=== PATIENT | male | born 1980 | race Caucasian/White ===

== ENCOUNTER 2016-12-04 22:54 | Emergency (ER) | payer OTHER ==
[~2016-12-04] VITALS: Ht 172.7 cm; Wt 70.0 kg
[~2016-12-04 22:54] MED LIST: NORCO 5/3251 TABLET PO
[2016-12-04 23:01] VITALS: BP 113/72
[2016-12-05] MEDS ORDERED: NARCAN4 MG NS (03:49)
== END 2016-12-05 00:46 | disposition left against medical advice (07) ==
LOC: EME → EDBD 22:54 → EME 12-05 00:46 → CANRESERV 12-11 00:14 → ENRESERV 12-11 00:14
DX: T40.601A Poisoning by unspecified narcotics, accidental (unintentional), initial encounter (principal); Z53.20 Procedure and treatment not carried out because of patient's decision for unspecified reasons; F17.200 Nicotine dependence, unspecified, uncomplicated
CPT/HCPCS: 99281; 99284; J2310

== ENCOUNTER 2016-12-05 01:34 | Emergency (ER) | payer OTHER ==
[~2016-12-05] VITALS: Ht 172.7 cm; Wt 83.1 kg
[2016-12-05] MEDS ORDERED: NARCAN4 MG NS (03:49)
[2016-12-05 04:07] VITALS: BP 107/61
== END 2016-12-05 04:08 | disposition home or self-care (01) ==
LOC: EME → EDBD 01:34 → EME 01:34
DX: T40.601A Poisoning by unspecified narcotics, accidental (unintentional), initial encounter (principal); F17.200 Nicotine dependence, unspecified, uncomplicated
CPT/HCPCS: 71010; 99281; 99284; J2310

== ENCOUNTER 2016-12-10 22:22 | Inpatient (IN) | payer OTHER ==
[~2016-12-10] VITALS: Ht 167.6 cm; Wt 81.2 kg
[~2016-12-10 22:22] MED LIST changes: +NARCAN4 MG NS
[2016-12-10 22:41] LABS: BASOPHIL COUNT 0.1 K/uL (0-0.1); EOSINOPHIL (%) 0.6 % (0-5); EOSINOPHIL COUNT 0.1 K/uL (0-0.3); HEMATOCRIT 45.4 % (38.0-50.0); IMMATURE GRANULOCYTE (%) 0.4 % (0.0-0.7); INSTRUMENT ABS NEUTROPHIL CT 5.7 K/uL; MCH 28.1 PG (29.0-34.0); MCHC 33.9 G/DL (30.0-36.0); MCV 82.8 FL (86-99); MEAN PLAT.VOLUME 9.7 uM^3 (9.0-12.4); MONOCYTE (%) 6.8 % (3-12); MONOCYTE COUNT 0.6 K/uL (0-0.8); NEUTROPHIL COUNT 5.7 K/uL (1.8-6.4); PLATELET COUNT 221 K/uL (156-360); RBC DIS.WIDTH-CV 11.9 % (11.8-14.6); RBC DIS.WIDTH-SD 36.6 % (39-53); RED BLOOD COUNT 5.48 M/uL (4.00-5.50); WHITE BLOOD COUNT 8.4 K/uL (4.1-10.2)
[2016-12-10 22:51] LABS: AMYLASE 32 IU/L (1-118); CHLORIDE 107 mEq/L (99-109); POTASSIUM 3.6 mEq/L (3.7-5.4); SODIUM 141 mEq/L (136-147)
[2016-12-10 22:53] LABS: GLUCOSE 91 mg/dL (70-99)
[2016-12-10 22:54] LABS: ANION GAP 13 MEQ/L (2-14)
[2016-12-10 22:56] LABS: SERUM ETHYL ALCOHOL 123 mg/dL
[2016-12-10 22:57] LABS: GFR ESTIMATE (CALCULATED) > 59 mL/min/
[2016-12-10 22:58] LABS: UREA NITROGEN (BUN) 10 mg/dL (9-23)
[2016-12-10 23:00] LABS: LIPASE 23 U/L (1.0-51.0)
[2016-12-11] VITALS (8 sets, daily range): BP systolic 95–124; BP diastolic 51–70
[2016-12-11 06:53] LABS: ADD MIUA? NO; BILIRUBIN NEGATIVE; BLOOD NEGATIVE; COLOR YELLOW ((YELLOW)); GLUCOSE (STRIP) NEGATIVE; KETONES 20; LEUKOCYTES NEGATIVE; NITRITE NEGATIVE; PROTEIN (STRIP) NEGATIVE; SPECIFIC GRAVITY 1.016 (1.000-1.030); UCUL ADDED? NO; UROBILINOGEN 0.2 MG/DL (0.2-1.0)
[2016-12-11 07:02] LABS: ADD MEDTOX COMMENT Y
[2016-12-11 07:42] LABS: AMPHETAMINES QUANT VALUE 0 NG/ML; BARBITUATES QUANT VALUE 0 NG/ML; BENZODIAZEPINES, URINE SCREEN POSITIVE (200 ng/mL); MARIJUANA QUANT VALUE 0 NG/ML; PHENCYCLIDINE QUANT VALUE 0 NG/ML
[2016-12-11 08:48] LABS: EOSINOPHIL (%) 0.2 % (0-5); HEMATOCRIT 42.4 % (38.0-50.0); IMMATURE GRANULOCYTE (%) 0.3 % (0.0-0.7); INSTRUMENT ABS NEUTROPHIL CT 10.4 K/uL; LYMPHOCYTE COUNT 1.5 K/uL (1.0-2.8); MCH 29.1 PG (29.0-34.0); MCHC 34.2 G/DL (30.0-36.0); MCV 85.1 FL (86-99); MEAN PLAT.VOLUME 10.4 uM^3 (9.0-12.4); MONOCYTE (%) 8.5 % (3-12); MONOCYTE COUNT 1.1 K/uL (0-0.8); NEUTROPHIL (%) 79.3 % (45-76); NEUTROPHIL COUNT 10.4 K/uL (1.8-6.4); PLATELET COUNT 191 K/uL (156-360); RBC DIS.WIDTH-CV 12.3 % (11.8-14.6); RED BLOOD COUNT 4.98 M/uL (4.00-5.50); WHITE BLOOD COUNT 13.1 K/uL (4.1-10.2)
[2016-12-11 09:19] LABS: ALKALINE PHOSPHATASE 53 IU/L (3-129); ANION GAP 7 MEQ/L (2-14); CHLORIDE 106 MEQ/L (99-109); GFR ESTIMATE (CALCULATED) > 59 mL/min/; GLUCOSE 95 mg/dL (70-99); MAGNESIUM 1.8 mg/dl (1.3-2.7); POTASSIUM 4.2 MEQ/L (3.7-5.4); SAMPLE HEMOLYSIS CHECK 0; SAMPLE ICTERIC CHECK 0; SAMPLE LIPEMIA CHECK 0; SODIUM 138 MEQ/L (136-147); UREA NITROGEN (BUN) 9 mg/dL (9-23)
[2016-12-11] MEDS ORDERED: GABAPENTIN600 MG PO (12:08)
[2016-12-12 00:24] VITALS: BP 119/63
[2016-12-12 03:53] VITALS: BP 130/67
[2016-12-12 07:48] VITALS: BP 123/66
[2016-12-12 09:28] LABS: EOSINOPHIL (%) 0.1 % (0-5); HEMATOCRIT 42.3 % (38.0-50.0); IMMATURE GRANULOCYTE (%) 0.5 % (0.0-0.7); IMMATURE GRANULOCYTE COUNT 0.1 K/uL; INSTRUMENT ABS NEUTROPHIL CT 11.5 K/uL; LYMPHOCYTE COUNT 1.1 K/uL (1.0-2.8); MCH 28.9 PG (29.0-34.0); MCV 84.9 FL (86-99); MEAN PLAT.VOLUME 10.3 uM^3 (9.0-12.4); MONOCYTE (%) 7.2 % (3-12); NEUTROPHIL (%) 84.1 % (45-76); NEUTROPHIL COUNT 11.5 K/uL (1.8-6.4); PLATELET COUNT 164 K/uL (156-360); RBC DIS.WIDTH-CV 12.3 % (11.8-14.6); RBC DIS.WIDTH-SD 37.9 % (39-53); RED BLOOD COUNT 4.98 M/uL (4.00-5.50); WHITE BLOOD COUNT 13.7 K/uL (4.1-10.2)
[2016-12-12 10:04] LABS: ALKALINE PHOSPHATASE 57 IU/L (3-129); ANION GAP 8 MEQ/L (2-14); CHLORIDE 107 MEQ/L (99-109); GFR ESTIMATE (CALCULATED) > 59 mL/min/; GLUCOSE 125 mg/dL (70-99); MAGNESIUM 1.7 mg/dl (1.3-2.7); SAMPLE HEMOLYSIS CHECK 0; SAMPLE ICTERIC CHECK 0; SAMPLE LIPEMIA CHECK 0; SODIUM 138 MEQ/L (136-147); TOTAL BILIRUBIN 0.9 MG/DL (0.0-1.0); UREA NITROGEN (BUN) 8 mg/dL (9-23)
[2016-12-12 11:30] VITALS: BP 119/65
[2016-12-12 15:28] VITALS: BP 118/62
[2016-12-12 19:58] VITALS: BP 112/63
[2016-12-13 00:09] VITALS: BP 119/59
[2016-12-13 03:49] VITALS: BP 116/62
[2016-12-13 08:22] VITALS: BP 119/61
[2016-12-13 14:39] LABS: EOSINOPHIL (%) 0.5 % (0-5); EOSINOPHIL COUNT 0.1 K/uL (0-0.3); IMMATURE GRANULOCYTE (%) 0.6 % (0.0-0.7); IMMATURE GRANULOCYTE COUNT 0.1 K/uL; INSTRUMENT ABS NEUTROPHIL CT 8.9 K/uL; MCH 28.8 PG (29.0-34.0); MCHC 33.3 G/DL (30.0-36.0); MCV 86.5 FL (86-99); MEAN PLAT.VOLUME 10.3 uM^3 (9.0-12.4); MONOCYTE (%) 6.9 % (3-12); MONOCYTE COUNT 0.7 K/uL (0-0.8); NEUTROPHIL (%) 82.8 % (45-76); NEUTROPHIL COUNT 8.9 K/uL (1.8-6.4); PLATELET COUNT 138 K/uL (156-360); RBC DIS.WIDTH-SD 38.5 % (39-53); RED BLOOD COUNT 4.51 M/uL (4.00-5.50); WHITE BLOOD COUNT 10.7 K/uL (4.1-10.2)
[2016-12-13 15:21] LABS: ANION GAP 6 MEQ/L (2-14); CHLORIDE 108 MEQ/L (99-109); MAGNESIUM 1.7 mg/dl (1.3-2.7); POTASSIUM 4.1 MEQ/L (3.7-5.4); SAMPLE HEMOLYSIS CHECK 0; SAMPLE ICTERIC CHECK 0; SAMPLE LIPEMIA CHECK 0; SODIUM 138 MEQ/L (136-147); TOTAL BILIRUBIN 0.9 MG/DL (0.0-1.0)
[2016-12-13 15:29] LABS: ALKALINE PHOSPHATASE 52 IU/L (3-129); GFR ESTIMATE (CALCULATED) > 59 mL/min/; GLUCOSE 119 mg/dL (70-99); UREA NITROGEN (BUN) 9 mg/dL (9-23)
[2016-12-13 16:05] VITALS: BP 134/67
[2016-12-13 23:22] VITALS: BP 129/71
[2016-12-14 07:49] VITALS: BP 130/64
[2016-12-14] MEDS ORDERED: PERCOCET 5/31 TABLET PO (10:22)
== END 2016-12-14 13:11 | disposition home or self-care (01) | DRG 581 ==
LOC: TRA 22:22 → ENRESERV 23:49 → SDC 12-11 → TRA 12-11 → ENRESERV 12-11 01:59 → 2SOUTH 12-11 02:16 → 3EAST 12-11 02:16
PROVIDERS: Internal Medicine Pulmonary Disease; Surgery
DX: S31.119A Laceration without foreign body of abdominal wall, unspecified quadrant without penetration into peritoneal cavity, initial encounter (principal); S11.91XA Laceration without foreign body of unspecified part of neck, initial encounter; S41.111A Laceration without foreign body of right upper arm, initial encounter; T40.1X1A Poisoning by heroin, accidental (unintentional), initial encounter; K45.8 Other specified abdominal hernia without obstruction or gangrene; F10.129 Alcohol abuse with intoxication, unspecified; I10 Essential (primary) hypertension; F31.9 Bipolar disorder, unspecified; Y90.6 Blood alcohol level of 120-199 mg/100 ml; K43.9 Ventral hernia without obstruction or gangrene; F41.1 Generalized anxiety disorder; Z88.0 Allergy status to penicillin; X99.1XXA Assault by knife, initial encounter
CPT/HCPCS: 71010; 74020; 74177; 80048; 80053; 80306 90; 81003; 82150; 83690; 83735; 84100; 84999; 85025; 86900; 86901; 88305; 94799; 99281; 99285; G0480; J0744; J1170; J1650; J1885; J2250; J2405; J3010; J7050; S0030

== ENCOUNTER 2017-03-16 09:50 | Emergency (ER) | payer OTHER ==
[~2017-03-16] VITALS: Ht 170.2 cm; Wt 82.2 kg
[~2017-03-16 09:50] MED LIST changes: +GABAPENTIN600 MG PO; +PERCOCET 5/31 TABLET PO
[2017-03-16 11:20] VITALS: BP 120/82
== END 2017-03-16 11:21 | disposition home or self-care (01) ==
LOC: EME 09:50
DX: J06.9 Acute upper respiratory infection, unspecified (principal); F17.200 Nicotine dependence, unspecified, uncomplicated; Z88.0 Allergy status to penicillin
CPT/HCPCS: 71020; 99281; 99284